=== PATIENT | female | born 1985 | race Caucasian/White ===

== ENCOUNTER 2020-04-01 20:08 | Observation (INO) | payer OTHER ==
[~2020-04-01] VITALS: Ht 154.9 cm; Wt 72.1 kg
[2020-04-01 22:40] VITALS: BP 115/66
== END 2020-04-01 22:50 | disposition home or self-care (01) ==
LOC: 4S 20:08
PROVIDERS: ADMIT Obstetrics & Gynecology; ATTEND Obstetrics & Gynecology
DX: O42.92 Full-term premature rupture of membranes, unspecified as to length of time between rupture and onset of labor (principal); Z3A.39 39 weeks gestation of pregnancy
CPT/HCPCS: 59025; 76805; G0378

== ENCOUNTER 2020-04-03 16:56 | Inpatient (IN) | payer OTHER ==
[~2020-04-03] VITALS: Ht 154.9 cm; Wt 72.6 kg
[2020-04-03] MEDS ORDERED: RINGERS SOLUTION,LACTATED 1,000 ML IV PRN (17:08)
[2020-04-03] MEDS ORDERED: OXYTOCIN 30 UNITS/LACT RINGERS 500 ML IV ONE (17:08)
[2020-04-03] MEDS ORDERED: PNV1TABL54 PO (17:09)
[2020-04-03] MEDS ORDERED: LIDOCAINE/PF 1% 30 ML VIAL INJ PRN (17:15)
[2020-04-03] MEDS ORDERED: CITRIC ACID/SODIUM CITRATE 30 ML SOLUTION UDCUP PO PRN (17:15)
[2020-04-03] MEDS ORDERED: METOCLOPRAMIDE HCL 5 MG/ML 2 ML VIAL IVP PRN (17:15)
[2020-04-03] MEDS ORDERED: FentaNYL CITRATE-PF 100 MCG/2 ML VIAL IVP PRN (17:15)
[2020-04-03] MEDS ORDERED: METHYLERGONOVINE MALEATE 0.2 MG/ML VIAL IM PRN (17:15)
[2020-04-03 17:24] VITALS: BP 107/67
[2020-04-03 17:41] LABS: BASOPHILS % (AUTO) 0.5 % (0.0-2.0); HEMATOCRIT 34.8 % (36-46); HEMOGLOBIN 11.8 g/dL (12.0-16.0); LYMPHOCYTES % (AUTO) 22.1 % (22.0-44.0); MEAN CORPUSCULAR HEMOGLOBIN 32.6 pg (26.0-34.0); MEAN CORPUSCULAR VOLUME 96 fL (80-100); MONOCYTES # (AUTO) 0.6 K/uL (0.1-1.0); MONOCYTES % (AUTO) 6.3 % (2.0-9.0); NEUTROPHILS # (AUTO) 6.3 K/uL (1.8-7.7); NEUTROPHILS % (AUTO) 69.1 % (40.0-70.0); PLATELET COUNT (AUTO)-OB 206 K/uL (150-450); RED BLOOD CELL COUNT(AUTO) 3.62 MIL/uL (4.00-5.20); RED CELL DISTRIBUTION WIDTH 14.4 % (11.5-14.5)
[2020-04-03] MEDS: RINGERS SOLUTION,LACTATED 1,000 ML IV SCH ×2 (18:04→22:10)
[2020-04-03] MEDS: MISOPROSTOL 50 MCG TABLET PO SCH ×2 (18:07→22:14)
[2020-04-03] MEDS ORDERED: AMPICILLIN SODIUM 2 GM/NS 100 ML IV ONE (18:45)
[2020-04-03] MEDS ORDERED: OXYGEN THERAPY IH SCH (20:00)
[2020-04-04] MEDS: MISOPROSTOL 50 MCG TABLET PO SCH (02:19)
[2020-04-04] MEDS ORDERED: OXYTOCIN 30 UNITS/LACT RINGERS 500 ML IV PRN (08:07)
[2020-04-04] MEDS ORDERED: AMPICILLIN SODIUM 2 GM/NS 100 ML IV ONE (08:33)
[2020-04-04] MEDS: RINGERS SOLUTION,LACTATED 1,000 ML IV SCH ×2 (09:45→20:13)
[2020-04-04] MEDS ORDERED: ROPIVACAINE HCL/PF 0.2% 100 ML ED ONE (12:45)
[2020-04-04] MEDS ORDERED: ROPIVACAINE HCL/PF 0.2% 100 ML ED PRN (13:34)
[2020-04-04] MEDS ORDERED: DiphenhydrAMINE HCL 50 MG/ML VIAL IVP PRN (13:45)
[2020-04-04] MEDS ORDERED: ONDANSETRON HCL 4 MG/2 ML VIAL IVP PRN (13:45)
[2020-04-04] MEDS: AMPICILLIN SODIUM 1 GM/NS 50 ML IV SCH ×3 (14:10→22:25)
[2020-04-04] MEDS ORDERED: OXYTOCIN 30 UNITS/LACT RINGERS 500 ML IV ONE (23:46)
[2020-04-05] MEDS ORDERED: BENZOCAINE 20%/MENTHOL 56 GM SPRAY CANISTER TP PRN
[2020-04-05] MEDS ORDERED: GLYCERIN/WITCH HAZEL LEAF 40 PADS JAR TP PRN
[2020-04-05] MEDS ORDERED: LIDOCAINE/PF 1% 30 ML VIAL INJ PRN
[2020-04-05] MEDS ORDERED: OxyCODONE HCL/ACETAMINOPHEN 5-325 MG TABLET PO PRN
[2020-04-05] MEDS ORDERED: MAGNESIUM HYDROXIDE SUSPENSION 30 ML UDCUP PO PRN
[2020-04-05] MEDS ORDERED: LANOLIN 7 GM OINTMENT TP PRN
[2020-04-05] MEDS: IBUPROFEN 800 MG TABLET PO PRN ×3 (00:23→23:14)
[2020-04-05 07:55] LABS: BASOPHILS % (AUTO) 0.3 % (0.0-2.0); EOSINOPHILS % (AUTO) 0.1 % (1.0-6.0); HEMATOCRIT 26.9 % (36-46); LYMPHOCYTES # (AUTO) 1.7 K/uL (1.0-4.8); LYMPHOCYTES % (AUTO) 6.8 % (22.0-44.0); MEAN CORPUSCULAR HEMOGLOBIN 32.6 pg (26.0-34.0); MEAN CORPUSCULAR HGB CONC 33.6 G/dL (31.0-37.0); MEAN CORPUSCULAR VOLUME 97 fL (80-100); MONOCYTES # (AUTO) 1.3 K/uL (0.1-1.0); MONOCYTES % (AUTO) 5.4 % (2.0-9.0); NEUTROPHILS # (AUTO) 21.7 K/uL (1.8-7.7); PLATELET COUNT (AUTO)-OB 150 K/uL (150-450); RED BLOOD CELL COUNT(AUTO) 2.77 MIL/uL (4.00-5.20); RED CELL DISTRIBUTION WIDTH 14.4 % (11.5-14.5)
[2020-04-05] MEDS: OxyCODONE HCL/ACETAMINOPHEN 5-325 MG TABLET PO PRN ×2 (08:00→15:47)
[2020-04-05 08:20] LABS: NEUTROPHILS % (AUTO) 87.4 % (40.0-70.0)
[2020-04-06] MEDS: IBUPROFEN 800 MG TABLET PO PRN (06:05)
[2020-04-06] MEDS ORDERED: IBUP-2070 PO (10:41)
[2020-04-06] MEDS ORDERED: FERR-89 PO (10:42)
== END 2020-04-06 11:10 | disposition home or self-care (01) | DRG 807 ==
LOC: OBSVTOIN 16:56 → 4S 16:56
PROVIDERS: ADMIT Obstetrics & Gynecology Obstetrics; ATTEND Obstetrics & Gynecology Obstetrics
PROC: 10D07Z6 Extraction of Products of Conception, Vacuum, Via Natural or Artificial Opening (ICD-10-PCS; principal; 2020-04-04)
PROC: 10907ZC Drainage of Amniotic Fluid, Therapeutic from Products of Conception, Via Natural or Artificial Opening (ICD-10-PCS; 2020-04-04)
PROC: 0W8NXZZ Division of Female Perineum, External Approach (ICD-10-PCS; 2020-04-04)
PROC: 3E0R3BZ Introduction of Anesthetic Agent into Spinal Canal, Percutaneous Approach (ICD-10-PCS; 2020-04-04)
PROC: 00HU33Z Insertion of Infusion Device into Spinal Canal, Percutaneous Approach (ICD-10-PCS; 2020-04-04)
DX: O77.0 Labor and delivery complicated by meconium in amniotic fluid (principal); Z37.0 Single live birth; Z3A.39 39 weeks gestation of pregnancy
CPT/HCPCS: 86850; 86900; 86901; J0290; J2590; J2795; J7120